=== PATIENT | male | born 1995 | race Hispanic/Latino ===

== ENCOUNTER 2019-09-13 17:25 | Observation (INO) | payer OTHER ==
[~2019-09-13] VITALS: Ht 172.7 cm; Wt 129.9 kg
--- NOTE | 2019-09-13 23:08 | NUR ---
09/13/19 2247 Lisseth Lester PT ARRIVES TO PACU WITH ORAL AIRWAY IN PLACE.
--- NOTE | 2019-09-13 23:21 | HP ---
[facility] [address], [place] [address] Signed ADMISSION DATE: 09/13/2019 REASON FOR ADMISSION: Clinical appendicitis. 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 He presented to the emergency room where he was evaluated by Dr. Carl. Yesterday, he had vague upper abdominal pain and central pain, pain in the region of the umbilicus which has migrated to the right lower quadrant today. The patient ate this morning but only had some water on the way over from [place] late this afternoon. His evaluation was notable for a positive Rovsing sign and marked tenderness at McBurney point. His white count was noted to be normal at 10.4 with a normal hematocrit of 40.8, platelets of 252,000, and Chem profile also normal including liver enzymes normal. His urinalysis was also normal except for a specific gravity elevated at 1.044. The patient has had nausea associated with this and some diarrhea, but no blood per rectum and no profound diarrhea. He also notes that he has pain upon urination. His pain is most dominantly at McBurney point. A CT scan was performed at approximately 6:15 p.m., which confirmed a fecalith within the appendix, but no sign of particular dilation of the appendix or marleen-appendiceal stranding. PAST MEDICAL HISTORY: Rather unremarkable. PAST SURGICAL HISTORY: He has never had surgery. MEDICATIONS: Takes no medications chronically. SOCIAL HISTORY: He is unmarried, though does have a live-in girlfriend. They live in [place]. He works for [employer]. REVIEW OF SYSTEMS: He denies any shortness of breath or chest pain. Denies any trauma to the abdomen or recent lifting pain or symptoms in that regard. He has no blood per rectum or Electronically Signed By: TYRONE MARIEE MD 09/13/19 2321 PATIENT NAME: LIOR JOHNSON HISTORY AND PHYSICAL DATE OF : [birth year] REPORT #: [id number] PHYSICIAN: TYRONE MARIEE MD PCP: NO PRIMARY CARE PHYSICIAN REPORT IS CONFIDENTIAL AND NOT TO BE RELEASED WITHOUT AUTHORIZATION [facility] [address], [place] [address] Signed hematemesis. He denies dysuria, though when he does urinate, he has pain developed in the right lower quadrant. PHYSICAL EXAMINATION: GENERAL: This is an obese man, who does not look systemically toxic. HEENT: Mucous membranes are slightly dry. Trachea is midline. CHEST: Shows normal respiratory excursion. HEART: Regular. ABDOMEN: Obese, but generally soft. Rovsing sign is positive and he has marked tenderness in McBurney point. EXTREMITIES: Show no clubbing, cyanosis, or edema. CT scan was reviewed. My review of the images confirms fecalith at the base of the appendix, particularly demonstrated in coronal view. The appendix appears to be obscured somewhat by ilium in the region. Admittedly, there is no fat stranding or periappendiceal fluid. ASSESSMENT: This clinical diagnosis is that of appendicitis. It is acknowledged he is not febrile nor he does have an elevated white count. CT scan does not show fat stranding. However, his clinical history and his exam are highly consistent with appendicitis. His urinalysis is normal and there is less likely a finding of pyelonephritis or nephrolithiasis. His gallbladder appears to be small and contracted. His liver appears to be reasonably normal. I recommended he be given cefoxitin antibiotic and Pepcid intravenously and taken to surgery this evening for laparoscopic appendectomy, possible open procedure. The risks of bleeding, infection, failure of diagnosis, misdiagnosis, and need for other indicated procedures were reviewed with him in detail. The patient has been having pain for over 24 hours and I think it unlikely for it to resolve with additional observation in the hospital with IV fluids. He understands the ambiguity of his diagnosis to some degree, but his clinical diagnosis is quite consistent with appendicitis and expedient appendectomy is reasonable. MD ANNETTE Cast/ALBA /[id number] Electronically Signed By: TYRONE MARIEE MD 09/13/19 232 PATIENT NAME: LIOR JOHNSON HISTORY AND PHYSICAL DATE OF : [birth year] REPORT #: [id number] PHYSICIAN: TYRONE MARIEE MD PCP: NO PRIMARY CARE PHYSICIAN REPORT IS CONFIDENTIAL AND NOT TO BE RELEASED WITHOUT AUTHORIZATION [facility] [address] [facility] [place] [address] Signed cc: Lawrence Carl MD Copies: LAWRENCE CARL MD ~ Electronically Signed By: TYRONE MARIEE MD 09/13/19 2321 PATIENT NAME: LIOR JOHNSON HISTORY AND PHYSICAL DATE OF : [birth year] REPORT #: [id number] PHYSICIAN: TYRONE MARIEE MD PCP: NO PRIMARY CARE PHYSICIAN REPORT IS CONFIDENTIAL AND NOT TO BE RELEASED WITHOUT AUTHORIZATION
--- NOTE | 2019-09-13 23:50 | NUR ---
PT TO FLOOR VIA STRETCHER FROM PACU. PT ALERT AND ORIENTED. ABLE TO TRANSFER SELF FROM [place] TO BED. REPORT RECEIVED FROM PACU NURSE. SCD'S IN PLACE. IVF INFUSING. LAP SITES X 3 WITH SMALL AMOUNT SANGUINOUS DRAINAGE. STERI STRIPS INTACT, REINFORCED WITH GAUZE AND TAPE. FRESH GOWN AND WARM BLANKETS GIVEN. PRN GIVEN FOR 8/10 ABD PAIN. VSS. 1L/NC IN PLACE. PT ORIENTED TO ROOM AND NURSE CALL LIGHT. NO QUESTIONS OR CONCERNS AT THIS TIME. CALL LIGHT IN REACH.
--- NOTE | 2019-09-14 00:49 | NUR ---
POST OP VITALS COMPLETE. PT ABLE TO VOID 325 ML YELLOW URINE. NO NEEDS AT THIS TIME. CALL LIGHT IN REACH.
--- NOTE | 2019-09-14 03:04 | NUR ---
PT UP TO BR WITH SBA TO VOID 600 ML YELLOW URINE. SRINIVAS WELL. BACK TO BED, SCD'S IN PLACE. PRN GIVEN FOR 8/10 ABD PAIN. ICE PACK TO ABDOMEN. CHICKEN BROTH AND SODA GIVEN, NO C/O NAUSEA. PT WEANED OFF OXYGEN, SPO2 95% ON RA. POST-OP VITAL SIGNS COMPLETE. CALL LIGHT IN REACH.
--- NOTE | 2019-09-14 04:45 | NUR ---
PT RESTING IN BED WITH EYES CLOSED, NAD. RR EVEN AND UNLABORED. SCD'S IN PLACE. IVF INFUSING. CALL LIGHT IN REACH.
--- NOTE | 2019-09-14 05:40 | NUR ---
PATIENT USED THE CALL LIGHT. SBA TO THE BATHROOM. PATIENT IS BACK IN BED. SCD ON. SPRITE PROVIDED. ICE WATER REFILLED. MADE NEW ICE PACK.
--- NOTE | 2019-09-14 06:02 | NUR ---
PT SLEPT WELL. ALERT AND ORIENTED, USES CALL LIGHT APPROPRIATELY. RA. SRINIVAS CL LIQ AT THIS TIME. LAP SITES X 3 WITH STERI STRIPS COVERED WITH GAUZE. SCHEDULED MEDS AND PRN DILAUDID X 2 FOR PAIN. DENIES NAUSEA. SCD'S. SBA TO
--- NOTE | 2019-09-14 07:52 | NUR ---
BEDSIDE REPORT RECEIVED FROM VIRGINIA ARGUELLO. WHITE BOARD UPDATED. PATIENT AWAKE SITTING UP IN BED. PAIN WELL CONTROLLED. ASSISTED UP TO BATHROOM. STANDBY ASSIST. IVF INFUSING. INDEPENDENTLY ORDERED BREAKFAST. STERI STRIPS COVERED WITH GAUZE AND TAPE FOR BLEEDING THROUGH STERI STRIPS.
--- NOTE | 2019-09-14 08:30 | NUR ---
AMBULATED 2 LAPS IN HALLWAY INDEPENDENTLY. TOLERATED WELL. REPORTED PAIN IN RUQ AND SHOULDERS. EDUCATED PATIENT ON IMPORTANCE OF WALKING TO RELIEVE GAS PAIN. TORADOL GIVEN PRN AFTER WALK.
--- NOTE | 2019-09-14 09:01 | NUR ---
MED REC COMPLETE
--- NOTE | 2019-09-14 12:30 | NUR ---
SPOKE WITH PATIENT IN ROOM. PATIENT LIVES WITH GIRLFRIEND, SHE WILL PROVIDE RIDE HOME AT DISCHARGE. 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 PATIENT HAS NO PCP, USES WALK-IN CLINIC WHEN NEEDED. DISCUSSED IMPORTANCE OF ESTABLISHING AND USING ONE. PATIENT FEELS SAFE TO RETURN HOME AT DISCHARGE AND HAS NO KNOWN BARRIERS. DISCUSSED TO UNDERSTAND DISCHARGE INSTRUCTIONS, ESPECIALLY MEDS AND SIDE EFFECTS, WHAT S/S TO WATCH FOR AND WHO TO CALL. PATIENT STATES UNDERSTANDING.
--- NOTE | 2019-09-14 12:38 | NUR ---
SALINE LOCKED PATIENT. HE IS EATING AND DRINKING WELL AND URINATING QUANTITY SUFFICIENT.
[2019-09-14] MEDS ORDERED: TYLENOL EXTRA500 MG PO (17:42)
[2019-09-14] MEDS ORDERED: OXYCODON-ACETA1 EAC2 PO (17:42)
[2019-09-14] MEDS ORDERED: IBUPROFEN600 MG PO (17:42)
--- NOTE | 2019-09-14 17:46 | NUR ---
pt ambulating in hallway now.
--- NOTE | 2019-09-14 19:06 | OR ---
[facility] [address], [place] [address] Signed DATE OF OPERATION: 09/13/2019 SURGEON: Tyrone Mariee MD PREOPERATIVE DIAGNOSES: 1. Acute appendicitis (clinical diagnosis). 2. Morbid obesity. POSTOPERATIVE DIAGNOSES: 1. Acute appendicitis with regional serositis. 2. Morbid obesity. PROCEDURE: Laparoscopy with laparoscopic appendectomy. ANESTHESIA: General endotracheal; Tyrone Montaño CRNA and local 10 mL of 0.25% Marcaine with epinephrine. INDICATION: This 24-year-old man began having midabdominal pain yesterday, associated diarrhea and some nausea today. His pain migrated to the right lower abdomen. He presented to the emergency room where he was evaluated by Dr. Sparks confirming marked tenderness in McBurney point, a positive Rovsing sign as well as heel tap. His white count was normal at 10.4. The urinalysis normal and Chem profile normal. A CT scan was performed, which showed a fecalith within the appendix, but no sign of dilation or periappendiceal stranding of fat. Despite these confounding findings on the CT scan, he was considered by me and Dr. Carl to have appendicitis based on his clinical history and exam. He has been fluid resuscitated, given intravenous antibiotic cefoxitin, and now to undergo appendectomy preferred by laparoscopic approach. The risks of bleeding, infection, failure of diagnosis, misdiagnosis, and need for other indicated procedures was reviewed. He understands and wished to proceed. FINDINGS: Regional serositis of small bowel loops in the right lower quadrant was noted. The appendix was ultimately noted to be inflamed, although not gangrenous, certainly edematous and injected. There is no evidence of perforated ulcer. The gallbladder was normal. Liver was normal despite his obesity. Appendectomy was performed without problem. The small bowel was run from the terminal ileum proximally showing no sign of regional enteritis (creeping fat, etc.) and no Meckel diverticulum was identified. Electronically Signed By: TYRONE MARIEE MD 09/14/19 1906 PATIENT NAME: LIOR JOHNSON OPERATIVE REPORT DATE OF : [birth year] REPORT #: [id number] PHYSICIAN: TYRONE MARIEE MD PCP: NO PRIMARY CARE PHYSICIAN REPORT IS CONFIDENTIAL AND NOT TO BE RELEASED WITHOUT AUTHORIZATION [facility] [address] [place], [place] [address] Signed A effect with cautery on the cecum was secured with a V-Loc stitch for added security. DESCRIPTION OF PROCEDURE: The patient was brought to the operating room, given a general endotracheal anesthetic. Preoperative antibiotic cefoxitin had been given. Sequential compression device stockings were used. After satisfactory anesthesia, the abdomen was clipped and prepared with a chlorhexidine solution and draped sterilely. He has a very large abdominal pannus. An infraumbilical incision was made and using an open Emerson cannula technique, pneumoperitoneum was achieved to a level of 14 mmHg of carbon dioxide gas. Intraabdominal inspection showed no sign of ascites or carcinomatosis. It did show inflammatory fluid in the right pericolic gutter. The small bowel loops were injected and considered inflamed. An epigastric port was placed and a camera placed to that site. Manipulation of the bowel with single hand technique showed no evidence of abscess. The appendix was identified and found to be moderately inflamed and injected and edematous. There was no sign of gangrenous change. The right lower quadrant 5 mm trocar was placed and two-hand manipulation undertaken. The terminal ileum was identified by the antimesenteric fat pad of Carmen and found to have no evidence of Crohn disease, specifically no creeping fat stenosis or inflammation specifically. The bowel loops in the region of the cecum did have acute serositis. It is noted. The appendix was elevated and a window created between the appendix and mesoappendix. Using an Endo-FRANCOIS stapling device, the base of the appendix was transected, flushed with the cecum without problem. This allowed for a straightforward insinuation of the Endo-FRANCOIS to the mesoappendix. This was transected without problem as well. The appendix was placed in an endobag and extracted through the infraumbilical port site, opened and found to clearly have inflammation. Photographs were taken. Irrigation was undertaken in the right lower abdomen. Excess irrigation fluid was suctioned free. The staple line on the vascular side did not have vigorous bleeding, but minimal oozing and therefore electrocautery was used to secure it. There was noted to be a effect, having used the cautery in a focal area of the cecum. This was oversewn with an Endo Stitch device using a V-Loc barbed suture. This covered the site in question quite nicely. Photographs were taken. Irrigation fluid was suctioned free. Examination of the upper abdomen showed no sign of evidence to suggest perforated ulcer, the gallbladder was normal in appearance overall. Excess irrigation fluid was suctioned free and the trocars were removed under direct visualization showing no sign of bleeding. The infraumbilical fascial incision was reapproximated with interrupted 0 Vicryl suture as well as a running 0 PDS suture for added security given his morbid obesity. Irrigation was undertaken and the skin was then closed with interrupted 3-0 Vicryl. Steri-Strips were applied. The patient was ultimately extubated and transferred to the recovery room in good Electronically Signed By: TYRONE MARIEE MD 09/14/19 1906 PATIENT NAME: LIOR JOHNSON OPERATIVE REPORT DATE OF : [birth year] REPORT #: [id number] PHYSICIAN: TYRONE MARIEE MD PCP: NO PRIMARY CARE PHYSICIAN REPORT IS CONFIDENTIAL AND NOT TO BE RELEASED WITHOUT AUTHORIZATION [facility] [address] [place] [address] [place], [place] [address] Signed condition and suffered no complications. Sponge, needle, and instrument counts reported as correct x3. MD ANNETTE Cast/MODL /[id number] cc: Lawrence Carl MD Copies: LAWRENCE CARL MD ~ Electronically Signed By: TYRONE MARIEE MD 09/14/19 1906 PATIENT NAME: LIOR JOHNSON OPERATIVE REPORT DATE OF : [birth year] REPORT #: [id number] PHYSICIAN: TYRONE MARIEE MD PCP: NO PRIMARY CARE PHYSICIAN REPORT IS CONFIDENTIAL AND NOT TO BE RELEASED WITHOUT AUTHORIZATION
--- NOTE | 2019-09-16 15:01 | PATH ---
[facility] [address] [place], [place] [address] Signed SPECIMEN(S): A APPENDIX SPECIMEN SOURCE: A. APPENDIX CLINICAL HISTORY: Acute appendicitis. FINAL PATHOLOGIC DIAGNOSIS: Appendix, appendectomy: - Appendix with focal minimal active inflammation and acute serositis. COMMENT: The entire appendix was submitted for histologic examination. A focal area of active inflammation was identified in the appendiceal mucosa. No transmural acute inflammation is seen, but mild acute serositis is present. Correlation with clinical and imaging findings is recommended. NAL:cml:C2NR MICROSCOPIC EXAMINATION: Histologic sections of all submitted blocks are examined by light microscopy. These findings, together with the gross examination, support the pathologic diagnosis. GROSS DESCRIPTION: The specimen, labeled "IV, A," and designated on the requisition "appendix," is received in formalin and consists of Specimen: Appendix with mesoappendix. Dimensions: 7.2 x 2.5 x 3.2 cm. Serosa: Normal. Perforation: Not grossly identified. Inking: Staple line is inked black. Mucosa: Amaro and thickened towards distal tip with dilated lumen. Fecalith: Present. Additional: None. Survey Project Manager sections are submitted in cassette (A1). AT (under the direct supervision of a pathologist) *Remaining specimen entirely submitted in cassettes A2-A4 per Dr. Jacinto's request. The Gross Description was prepared using a voice recognition system. The PATIENT NAME: LIOR JOHNSON PATHOLOGY DATE OF : [birth year] REPORT #: [id number] PHYSICIAN: ELIF PATHOLOGY PCP: NO PRIMARY CARE PHYSICIAN REPORT IS CONFIDENTIAL AND NOT TO BE RELEASED WITHOUT AUTHORIZATION [facility] [address] [place], [place] [address] Signed report was reviewed for accuracy; however, sound-alike word errors, addition and/or deletions may occur. If there is any question about this report, please contact Client Services. PERFORMING LABORATORY: The technical component was performed by [address] [address] (Draw String Knotter: Marybeth Munoz MD; CLIA# [id number]). Professional interpretation was performed by [facility] [place], [address] [address] (CLIA# [id number]). Diagnostician: Justina Jacinto MD Pathologist Electronically Signed 09/16/2019 Copies: ~ PATIENT NAME: LIOR JOHNSON PATHOLOGY DATE OF : [birth year] REPORT #: [id number] PHYSICIAN: ELIF LYNNE PCP: NO PRIMARY CARE PHYSICIAN REPORT IS CONFIDENTIAL AND NOT TO BE RELEASED WITHOUT AUTHORIZATION
== END 2019-09-14 18:25 | disposition home or self-care (01) ==
LOC: ED 17:25 → MS 17:27
PROVIDERS: ADMIT Surgery
PROC: 0DTJ4ZZ Resection of Appendix, Percutaneous Endoscopic Approach (ICD-10-PCS; principal; 2019-09-13 21:03)
DX: K35.33 Acute appendicitis with perforation, localized peritonitis, and gangrene, with abscess (principal); E66.01 Morbid (severe) obesity due to excess calories; F12.90 Cannabis use, unspecified, uncomplicated
CPT/HCPCS: 00840; 36415; 74177; 80053; 81001; 85025; 96372; 96376; 99285-25; G0378; J0330; J0694; J1100; J1170; J1644; J1885; J2250; J2405; J2704; J2765; J3010; J7030; J7121; Q9967

== ENCOUNTER 2020-06-19 23:11 | Inpatient (IN) | payer BC ==
[~2020-06-19] VITALS: Ht 172.7 cm; Wt 127.5 kg
[~2020-06-19 23:11] MED LIST: IBUPROFEN600 MG PO; OXYCODON-ACETA1 EAC2 PO; TYLENOL EXTRA500 MG PO
--- OUTSIDE RECORDS SUMMARY | 2020-06-19 23:16 | XMS ---
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 Natalia has no Care Guidelines for this patient. Sandy VISIT COUNT (12 MO.) [address] TOTAL 3 NOTE: Visits indicate total known visits. ED/UCC VISIT TRACKING (12 MO.) 06/19/2020 23:14 [facility] [place] TYPE: Emergency COMPLAINT: - RIGHT FLANK C+ 06/19/2020 13:11 [facility] [place] TYPE: Emergency DIAGNOSES: - R AIDE PAIN DIARRHEA - Diverticulitis of intestine, part unspecified, without perforation or abscess without bleeding - R SIDE PAIN DIARRHEA 09/13/2019 17:26 [facility] [place] TYPE: Emergency COMPLAINT: - RIGHT SIDE ABD PAIN INPATIENT VISIT TRACKING (12 MO.) 09/13/2019 17:27 [facility] [place] TYPE: Observation COMPLAINT: - ACUTE APPENDICITIS DIAGNOSES: - Acute appendicitis with perforation and localized peritonitis, with abscess - Cannabis use, unspecified, uncomplicated - Unspecified acute appendicitis - Morbid (severe) obesity due to excess calories [email or web address]
[2020-06-19] MEDS ORDERED: METRONIDAZOLE500 MG PO (23:44)
[2020-06-19] MEDS ORDERED: CIPROFLOXACIN500 MG PO (23:44)
--- NOTE | 2020-06-20 02:45 | NUR ---
PATIENT ARRIVES TO [place] VIA STRETCHER FROM ED. ADMISSION AND ASSESSMENT COMPETE. PT AMBULATES TO BR INDEPENDENTLY. IVF INFUSING WNL, PRN ZOFRAN ADMINISTERED, PT REPORTS 7/10 SHARP ABD PAIN, MADE PLAN WITH PT FOR NEXT PRN PAIN MEDICATION. VSS, A+O, ON ROOM AIR. WATER PROVIDED, ORIENTED TO ROOM, CALL LIGHT IN REACH, EMESIS BAG IN HAND. NO FURTHER REQUESTS AT THIS TIME.
--- NOTE | 2020-06-20 06:38 | NUR ---
MEDICATIONS ADMINISTERED, VITALS AND I/O'S COMPLETE, PT AMBULATED TO BR, IVF INFUSING WNL. PRN PAIN MEDICATION ADMINISTERED FOR 8/10 PAIN. NO OTHER NEEDS AT THIS TIME.
--- NOTE | 2020-06-20 07:52 | NUR ---
REPROT RECEIVED. PT IN BED WITH TELE #[address] HR 75 AND SPO2 AT 100% ON RA. LR AT 125 INFSUING. CALL LIGHT IN REACH.
--- NOTE | 2020-06-20 10:21 | NUR ---
ASSESSMENT COMPLETED. PT REPORTING ABD PAIN BUT WISHES TO HOLD OFF ON PAIN MEDS FOR NOW. PT WITH SOME NAUSEA AND EMESIS AFTER DRINKING BROTH, EDUARDO ADMISNTERED. NO PROBLEMS BREATHING. PT IS DIAPHORETIC BUT AFEBRILE. NO COUGH. CALL LIGHT IN REACH.
[2020-06-20] MEDS ORDERED: OXYCODONE-ACET1 EAC1 PO (10:57)
--- NOTE | 2020-06-20 11:33 | NUR ---
MED REC COMPLETE
--- NOTE | 2020-06-20 11:58 | NUR ---
ROUNDED ON PT. ASSISTED UP TO CHAIR. PT REPORTING RLQ PAIN 8/10 WITH AMBULATION BUT MINIMAL PAIN WHILE SITTING.
--- NOTE | 2020-06-20 14:30 | NUR ---
DR MARIEE IN TO ROUND. PLAN OF CARE DISCUSSED. IV FLUIDS TITRATED TO 85ML/HR PER DR CANDELARIA.
--- NOTE | 2020-06-20 14:40 | NUR ---
DUE TO RESTRICTIONS I AM UNABLE TO VISIT PT. WILL FOLLOW NEEDED
--- NOTE | 2020-06-20 15:30 | NUR ---
PT REPORTING 7/10 RLQ PAIN. TORIDOL ADMISNTERED. PT IN BED. CALL LIGHT IN REACH
--- NOTE | 2020-06-20 16:22 | NUR ---
NO ANSWER IN ROOM PHONE. CM WILL CONTINUE TO FOLLOW.
--- NOTE | 2020-06-20 18:39 | NUR ---
PT ATTEMPTED TO DRINK CLEAR LIQUID DINNER. DRANK 200 ML THEN QUICKLY VOMITED IT UP. ZOFRAN ANDMINSTERED. ENCOURAGED TO STICK TO WATER FOR THE NIGHT. PT INSISTED ON SHOWERING, SO SHOWER SET UP. PT SALINE LOCKED. REPORTS PAIN IS IMPROVED SINCE TORIDOL. CALL LIGHT IN REACH DENIES FURTHER NEEDS.
--- NOTE | 2020-06-20 19:20 | NUR ---
SHIFT REPORT RECEIVED FROM DAYSHIFT SAUNDRA POWER. pt AWAKE AND RESTING IN BED, INDEPENDENT IN THE ROOM. REPORTS NAUSEA FROM EARLIER IS IMPROVED, DENIES NEED FOR NAUSEA MEDICATION AT THIS TIME, CALL LIGHT IN REACH.
--- NOTE | 2020-06-20 19:35 | NUR ---
PT STILL WITH NAUSEA AFTER ZOFRAN. DR MARIEE CALLED. NEW ORDER FOR PHENERGAN 12.5MG Q6P RECIEVED. READ BACK FOR VERIFICATION.
--- NOTE | 2020-06-20 21:30 | NUR ---
ASSESSMENT COMPLETE, SCHEDULED MEDS GIVEN (SEE EMAR). pt AWAKE AND RESTING IN BED. VSS, TELE10 IN PLACE, SINUS RHYTHM. pt ON RA, DENIES SOB AND CHEST PAIN. IV FLUIDS AND ABX INFUSING. PRN NAUSEA MEDICATION ALSO GIVEN. pt INDEPENDENT IN ROOM, COMPLIANT WITH CARE. CALL LI IN REACH.
--- NOTE | 2020-06-21 00:20 | NUR ---
pt's GIRLFRIEND NUHA CALLED AND ASKED FOR UPDATE, QUESTIONS ANSWERED.
--- NOTE | 2020-06-21 00:39 | NUR ---
ROUNDED ON pt, pt AWAKE AND RESTING IN BED. IV FLUIDS CONTINUE TO INFUSE PER MD ORDERS. NO NEEDS OR CONCERNS AT THIS TIME. CALL LIGHT IN REACH.
--- NOTE | 2020-06-21 02:30 | NUR ---
ASSESSMENT COMPLETE, NO NEW CHANGES OR CONCERNS. pt AWAKE AND RESTING IN BED, REPORTS TOLERABLE 4/10 ABD PAIN. DENIES NEED FOR PAIN MEDICATION. pt ALSO DENIES NAUSEA. IV FLUIDS AND ABX INFUSING, SITE WNL. URINAL EMPTIED, BOARD UPDATED. NO ADDITIONAL NEEDS, CALL LIGHT IN REACH.
--- NOTE | 2020-06-21 03:47 | NUR ---
pt RESTING QUIETLY IN BED WITH EYES CLOSED. RR REMAINS WNL, REGULAR AND UNLABORED. O2 SATS UPPER 90'S ON RA. NO DISTRESS NOTED, CALL LIGHT IN REACH.
--- NOTE | 2020-06-21 06:17 | NUR ---
vs and i&o's complete. scheduled tylenol and prn toradol given for pain (see emar). prn zofran also given (see emar). blood draw also complete and sent to lab, tourniquet removed. iv fluids resumed, site wnl. no additional needs, call light in reach.
--- NOTE | 2020-06-21 07:23 | NUR ---
REPORT RECEIVED. PT IN BED WITH TELE [address] SPO2 AT 99% ON RA. HR 70. LR AT 85ML/HR INFUSING. PT IN BED WITH EYES CLSOED. AIRBORN PRECAUTIONS IN PLACE. PT INDEPENDENT IN ROOM. CALL LIGHT IN REACH
--- NOTE | 2020-06-21 08:09 | NUR ---
IN TO ADMISNTER MEDICATIONS. PT REQUESTING SHOWER AFTER ABX INFUSES. SHOWER SET UP. PT REPORTS 6/10 RLQ PAIN. PT WITH HEAT PACK. DENIES NEED FOR PHARMALOGICAL INTERVENTIONS. REPORTS SOME NAUSEA. WATER AT BEDSIDE. BOWEL TONES HYPOACTIVE IN LOWER ABD. LUNGS CLEAR. NO BM, NO EMESIS.
--- NOTE | 2020-06-21 08:42 | NUR ---
saline locked for shower.
--- NOTE | 2020-06-21 09:43 | NUR ---
PT BACK TO BED AFTER SHOWER. FLUIDS CONINUED PER ORDER. PT DENIES PAIN OR NAUSEA. REQUESTING BROTH. ENCOURAGED TO TAKE IT SLOW.
--- NOTE | 2020-06-21 11:11 | NUR ---
PT ON CLEAR LIQUID DIET STICKING WITH MOSTLY WATER. REPORTING SOME SLIGHT NAUSEA REQUESTING MEDICATION. ZOFRAN ADMINSTERED. DENEIS PAIN. CALL LIGHT IN REACH.
--- NOTE | 2020-06-21 12:00 | NUR ---
PT REPORTS IMPROVMENT IN NAUSEA AND IS REQUESTING CHICKEN BROTH. ENCOURAGED TO DRINK SLOW AND MONITOR FOR INCREASE IN NAUSEA. PT AGREEABLE. ENCOURAGED TO AMBULATE IN ROOM PT IS NOT ALOUD TO WALK HALLS. CALL LIGHT IN REACH. DENEIS FURTHER NEEDS.
--- NOTE | 2020-06-21 12:37 | NUR ---
PT UNDER PRECAUTIONS, WILL FOLLOW ABLE
--- NOTE | 2020-06-21 14:25 | NUR ---
PT DENEIS PAIN. SCHEDULED TYLENOL ADMISNTERED. REPORTS SOME NSUEA, PHENERGAN GIVEN. NO EMESIS THIS SHIFT. LR INFUSING AT 85ML/HR. CALL LIGHT IN REACH.
--- NOTE | 2020-06-21 16:00 | NUR ---
PT REPORTING FEELING HUNGRY AND IS REQUESTING BROTH. DENIES PAIN. DENIES NAUSEA.
--- NOTE | 2020-06-21 17:00 | NUR ---
Pt lives in [place] and works for [employer]. Lives with his girlfriend in a house with 2 steps. He denies covid symptoms, states he has abd pain from diverticulitis. He denies needs at this point. Plans on dc to home when discharged and girl friend will assist him. He does not have a pcp and we discussed this. I will check tomorrow if Dr. Zapata is still taking pts.
--- NOTE | 2020-06-21 19:15 | NUR ---
SHIFT REPORT RECEIVED FROM DAYSHIFT SAUNDRA POWER. pt AWAKE AND RESTING IN BED, ON RA. NO DISTRESS NOTED. IV FLUIDS INFUSING. NO ADDITIONAL NEEDS AT THIS TIME, CALL LIGHT IN REACH.
--- NOTE | 2020-06-21 21:15 | NUR ---
ASSESSMENT COMPLETE, SCHEDULED MEDS GIVEN (SEE EMAR). PO ABX'S GIVEN WITH SMALL SNACK. PRN NAUSEA ALSO GIVEN PER pt REQUEST. IV FLUIDS INFUSING, SITE WNL. pt DENIES PAIN, DECLINED SCHEDULED TYLENOL. WRITTEN EDUCATION GIVEN ON LOW FIBER. VSS, pt ON RA. DENIES SOB AND CHEST PAIN. TELE#[address], SINUS RHYTHM. NO ADDITIONAL NEEDS VERBALIZED, CALL [facility] IN REACH.
--- NOTE | 2020-06-21 23:48 | NUR ---
pt AWAKE AND RESTING IN BED, DENIES NEEDS OR CONCERNS. TELE#[address], O2 SAT 98% ON RA, HR 55, SINUS DOT. IV FLUIDS INFUSING. CALL LIGHT REMAINS WITHIN REACH.
--- NOTE | 2020-06-22 01:52 | NUR ---
pt AWAKE AND RESTING IN BED, DENIES NEEDS OR CONCERNS. IV FLUIDS CONTINUE TO INFUSE AT 85MLS/HR AND CALL LIGHT IS WITHIN EASY REACH.
--- NOTE | 2020-06-22 02:59 | NUR ---
ASSESSMENT COMPLETE, NO NEW CHANGES OR CONCERNS. pt AWAKE AND RECENTLY VOIDED, INDEPENDENT IN THE ROOM. TELE#[address], HR 50, SINUS DOT. O2 SAT 98% ON RA. pt DENIES SOB OR CHEST PAIN. IV FLUIDS INFUSING, SITE WNL. PUMP CLEARED. pt DENIES PAIN, BUT REPORTS SOME DISCOMFORT WHEN AMBULATING. WARM PACK PROVIDED, DISCUSSED POC FOR NEXT SCHEDULED TYLENOL (SEE EMAR). pt VERBALIZES UNDERSTANDING AND WILL CALL IF PAIN DEVELOPS AND MEDICATION IS NEEDED. CALL LIGHT IN REACH.
--- NOTE | 2020-06-22 06:00 | NUR ---
LAB DRAW COMPLETE AND SENT TO LAB, pt TOLERATED WELL. TOURNIQUET REMOVED. VSS AND I&O'S COMPLETE AND ALSO STABLE. pt DENIES PAIN, SCHEDULED TYLENOL GIVEN (SEE EMAR) TO PREVENT WORSENING PAIN. IV FLUIDS INFUSING, SITE WNL. NO FURTHER NEEDS, CALL LIGHT IN REACH.
--- NOTE | 2020-06-22 07:20 | NUR ---
pt ASKED ABOUT ISOLATION REGARDING DISCHARGE AND IF IT WOULD BE OKAY TO RETURN HOME HIS BABY AND GIRLFRIEND ARE BOTH POSITIVE WITH COVID AND LIVE WITH HIM. pt INSTRUCTED TO DISCUSS QUESTIONS WITH DR MARIEE WHEN HE COMES AND ROUNDS. pt VERBALIZED UNDERSTANDING.
--- NOTE | 2020-06-22 10:00 | NUR ---
Patient is on room air, respirations even and non labored. Pt denies sob. No notable cough. Pt reports he has no pain. LR infusing at 85 ml/hr. Patient tolerating breakfast well. Pt denies needs and reports he is ready to go home today. Call light within reach of pt.
--- NOTE | 2020-06-22 14:23 | NUR ---
Patient sitting up in chair, a&ox4. Patient denies pain at this time. VS stable, afebrile. Patient has no needs. Personal supplies and call light within reach.
--- NOTE | 2020-06-22 14:25 | NUR ---
No change in plan for dc.
--- NOTE | 2020-06-22 14:25 | NUR ---
Noo change in plan for discharge.
[2020-06-22] MEDS ORDERED: ACETAMINOPHEN500 MG PO (14:45)
--- NOTE | 2020-06-22 15:14 | NUR ---
Called and spoke with Maribel from scheduling. She requests a face sheet and notes. She will schedule Servando and call with his appt time and date. Above faxed as requested.
--- NOTE | 2020-06-22 15:17 | NUR ---
Notified office, pt will discharge today and requested they call him with his appt date and time.
--- NOTE | 2020-06-22 15:19 | HP ---
[facility] [address], [place] [address] Signed ADMISSION DATE: 06/19/2020 REASON FOR ADMISSION: Acute sigmoid diverticulitis with right lower quadrant pain concurrent positive COVID testing 24 hours previously. HISTORY OF PRESENT ILLNESS: This 24-year-old obese man is from [place], [place], who works for [employer]. He is known to me from the past having undergone laparoscopic appendectomy by me on September 13, 2019, The patient presented to the emergency room in [place] yesterday with right lower abdominal pain and generalized lower abdominal pain. He underwent CT scan which showed findings suggestive of sigmoid diverticulitis, but noting the sigmoid colon angling toward the right lower abdomen thus giving the impression and symptoms of right lower quadrant pain. The patient was known to me for acute appendicitis in August of 2019., having undergone laparoscopic appendectomy without problem. It appears he was tested for COVID in the emergency room in [place], [place] and the test was positive. The disposition of the patient from [place] yesterday was not admission to the hospital for IV antibiotics or other interventions but rather oral antibiotic Levaquin and Flagyl as well as Percocet for pain. The patient was unrelenting in his pain and presented to the [facility] on that basis. His evaluation in the emergency room was by Dr. Rangel. I was advised in the installation specialist hours of his condition of acute diverticulitis apparently nonresponsive to outpatient therapy, though I do not recall the issue of his COVID status. He was admitted for further evaluation and care. PAST MEDICAL HISTORY: Significant primarily for obesity and prior appendectomy. The patient is uncertain how he may have contracted COVID-19; he works in a capacity of [employer] for [email or web address] and one other workforce member is known to have it recently. The patient denies any shortness of breath, though he did have diarrhea a few days ago, which has resolved. He is uncertain how long he may have been positive but he exhibits currently no evidence of hypoxemia or other systemic manifestations of COVID Electronically Signed By: TYRONE MARIEE MD 06/22/20 1519 PATIENT NAME: LIOR JOHNSON HISTORY AND PHYSICAL DATE OF : [birth year] REPORT #: [id number] PHYSICIAN: TYRONE MARIEE MD PCP: NO PRIMARY CARE PHYSICIAN REPORT IS CONFIDENTIAL AND NOT TO BE RELEASED WITHOUT AUTHORIZATION [facility] [address], [place] [address] Signed disease. REVIEW OF SYSTEMS: Denies any shortness of breath or chest pain. He is having no peripheral extremity pain. He denies shortness of breath. PHYSICAL EXAMINATION: GENERAL: Large man who appears nontoxic currently. VITAL SIGNS: Temperature is 97.8, pulse 65, blood pressure 140/82, O2 saturation 100% on room air. NECK: Shows no thyromegaly or cervical adenopathy. He has a full young. HEENT: Mucous membranes are dry. CHEST: Shows normal respiratory excursion. Pulses regular. ABDOMEN: Obese, but soft. Well-healed incisions are noted of the abdominal wall from laparoscopic appendectomy. He has marked tenderness in the left lower quadrant, less so in the right lower abdomen. EXTREMITIES: Show no clubbing, cyanosis, or edema. There is no sign of erythematous change at the base of his toes (a finding of COVID on occasion). LABORATORY DATA: At admission show white count of 9.3, a hematocrit of 43.1. His Chem profile is normal. Lactic acid is 0.6. Liver enzymes are normal. Lipase normal at 13. Urinalysis normal. CT scan interpretation as per describing "stable" moderate active acute diverticulitis in the mid sigmoid with no extraluminal gas or drainable fluid collection. My own review of the films shows thick abdominal wall pannus. There is no sign of fascial defect at the umbilicus to suggest hernia. There are inflammatory changes to the right of the midline in the mesentery. There are inflammatory changes lateral to displaced sigmoid colon. There are a few scattered diverticuli in the region as well. There was no sign of free air abscess. ASSESSMENT: The patient has clinical and radiographic evidence of acute diverticulitis, however, this is an uncommon diagnosis in someone 24 years of age. I will review the CT scan findings more thoroughly with Dr. Vega, radiologist on staff. He is appropriately treated currently with cefoxitin, intravenous antibiotic and avoidance of oral intake other than some liquids. He was incidentally noted to have positive COVID test which may or may not contribute to his current symptoms. I see no evidence of peripheral thrombosis. No evidence of hypoxemia or other systemic manifestations of COVID-19. There are notably diverticuli of the sigmoid that has been identified, although his primary complaint was right lower abdominal pain. His dominant tenderness is on the left lower quadrant concordant to Electronically Signed By: TYRONE MARIEE MD 06/22/20 1519 PATIENT NAME: LIOR JOHNSON HISTORY AND PHYSICAL DATE OF : [birth year] REPORT #: [id number] PHYSICIAN: TYRONE MARIEE MD PCP: NO PRIMARY CARE PHYSICIAN REPORT IS CONFIDENTIAL AND NOT TO BE RELEASED WITHOUT AUTHORIZATION [facility] [address] [place] [address] Signed acute sigmoid diverticulitis. At this point, treatment will entail IV antibiotic administration, clear liquid diet as tolerated, monitoring of his O2 saturation to assess there is no progression of his COVID disease concurrently identified to require additional interventions. At minimum, anticoagulation with subcutaneous heparin will be initiated. There is no current indication for steroid administration in his situation. We will review current guidelines for treatment of asymptomatic or minimally symptomatic COVID-19 patients in addition to our plan for treatment of incidentally noted sigmoid diverticulitis. MD ANNETTE Cast/MODL /[id number] cc: Jason Casillas Dr. Rangel Copies: ~ Electronically Signed By: TYRONE MARIEE MD 06/22/20 1519 PATIENT NAME: LIOR JOHNSON HISTORY AND PHYSICAL DATE OF : [birth year] REPORT #: [id number] PHYSICIAN: TYRONE MARIEE MD PCP: NO PRIMARY CARE PHYSICIAN REPORT IS CONFIDENTIAL AND NOT TO BE RELEASED WITHOUT AUTHORIZATION
--- NOTE | 2020-06-22 16:47 | NUR ---
REceived fax from [facility] pt has been scheduled with Dr. Zapata 07/06/20 and they have notified the pt. They are requesting chart faxed to their office. I called and left a message for Rosa from Medical Records.
--- NOTE | 2020-06-23 09:33 | DS ---
[facility] [address], [place] [address] Signed ADMISSION DATE: 06/20/2020 DISCHARGE DATE: 06/22/2020 REASON FOR ADMISSION: This 24-year-old obese man is from [place], [place] and works for [employer]. He is known to me from the past having undergone laparoscopic appendectomy on September 13, 2019 for acute appendicitis. The patient presented to the emergency room in [place] the day prior to current admission with right lower abdominal pain and generalized lower abdominal pain. He underwent a CT scan which showed findings suggestive of sigmoid diverticulitis with a displaced sigmoid to the right lower abdomen. Additionally, he was noted to have positive COVID on emergency room testing at [place], [place]. Subsequently he has learned that his girlfriend, his baby, his girlfriend's mother, and brother all had development of COVID as well. The patient was discharged from the emergency room in [place], [place] with oral antibiotics Cipro and Flagyl and Percocet, but he presented instead to [facility] as he was markedly bothered by his abdominal pain related to the diverticulitis. His evaluation was repeated with a CT scan confirming the aforementioned findings and some fluid in the pelvis. He was admitted by me for further evaluation and care. PHYSICAL EXAMINATION: Pertinent physical exam: GENERAL: Showed a relatively tall man who is very fluent in Greek. NECK: Trachea is midline. CHEST: Clear. HEART: Regular. ABDOMEN: Obese, but soft. There is market tenderness in the right lower abdomen, but even more so in the left lower quadrant. Incisions from prior laparoscopic appendectomy well healed. A CT scan was reviewed confirming the findings as noted of sigmoid diverticulitis. There was some question of some pelvic fluid noted, though no well-formed abscess. HOSPITAL COURSE: He was admitted given intravenous fluids and IV antibiotic of cefoxitin. He was maintained in isolation as regards to his COVID-19 positive test. The patient was maintained with IV fluids, parenteral pain medication and avoidance of oral intake other than liquids. He had marked improvement by the following day. His Electronically Signed By: TYRONE MARIEE MD 06/23/20 0933 PATIENT NAME: LIOR JOHNSON DISCHARGE SUMMARY DATE OF : [birth year] REPORT #: [id number] PHYSICIAN: TYRONE MARIEE MD PCP: NO PRIMARY CARE PHYSICIAN REPORT IS CONFIDENTIAL AND NOT TO BE RELEASED WITHOUT AUTHORIZATION [facility] [address], [place] [address] Signed white count at admission had been 9.3, hematocrit 43.1, and lactic acid 0.6. His followup CBC was also normal, indeed improved. The following day he had very minimal if any tenderness in the left lower or right lower quadrant and was advanced from liquids to a rather low fiber diet, which he tolerated well. Additionally, he was transitioned to oral antibiotic, Cipro 500 mg p.o. b.i.d. and Flagyl 250 p.o. t.i.d. By the day of discharge, he is having no tenderness or abdominal pain complaints. He has had no progression of his COVID disease, specifically no fever, hypoxemia, or other manifestations of the ailment. He was discharged to home with instructions to maintain a low-fiber diet until I see him back in the office in 4-6 weeks. He will have a seven day course of Cipro and Flagyl as had been already outlined in [place]. As regards his COVID-19, he is recommended to isolate in place for an additional 12 days. He will likely return home to his girlfriend and their baby who are already afflicted with COVID-19 themselves. Long-term, we will anticipate colonoscopy to assure that there was no neoplastic change causing the diverticulitis. He is at a very young age for diverticulitis or colonic neoplasm and on that basis even more should this examination be undertaken. He understands this. DISCHARGE MEDICATIONS: Therefore include: 1. Tylenol 1000 mg p.o. every six hours as needed for pain #60. 2. Cipro 500 mg p.o. b.i.d. for seven days. 3. Flagyl 500 mg p.o. q.12 x7 days (previous prescription). 4. Oxycodone with Tylenol 5/325 one p.o. every six hours as needed for pain, patient already has. DISCHARGE DIAGNOSES: 1. Acute diverticulitis with left lower quadrant and some right lower quadrant tenderness. 2. History of laparoscopic appendectomy in August 2019. 3. Obesity. 4. Recent COVID infection. Tyrone Mariee MD Electronically Signed By: TYRONE MARIEE MD 06/23/20 0933 PATIENT NAME: LIOR JOHNSON DISCHARGE SUMMARY DATE OF : [birth year] REPORT #: [id number] PHYSICIAN: TYRONE MARIEE MD PCP: NO PRIMARY CARE PHYSICIAN REPORT IS CONFIDENTIAL AND NOT TO BE RELEASED WITHOUT AUTHORIZATION [address] [address] Signed /[facility] /[id number] Copies: ~ Electronically Signed By: TYRONE MARIEE MD 06/23/20932 PATIENT NAME: LIOR JOHNSON DISCHARGE SUMMARY DATE OF : [birth year] REPORT #: [id number] PHYSICIAN: TYRONE MARIEE MD PCP: NO PRIMARY CARE PHYSICIAN REPORT IS CONFIDENTIAL AND NOT TO BE RELEASED WITHOUT AUTHORIZATION
== END 2020-06-22 16:00 | disposition home or self-care (01) | DRG 391 ==
LOC: ED 23:11 → MS 23:15
PROVIDERS: ADMIT Surgery; ATTEND Surgery
DX: K57.32 Diverticulitis of large intestine without perforation or abscess without bleeding (principal); U07.1 COVID-19; Z68.41 Body mass index [BMI] 40.0-44.9, adult; F17.200 Nicotine dependence, unspecified, uncomplicated; E66.9 Obesity, unspecified
CPT/HCPCS: 72193; 80053; 81001; 83605; 83690; 85025; 96365; 96366; 96375; 96376; 99285-25; G0378; J0694; J1170; J1644; J1885; J2270; J2405; J2550; J7121; Q9967

== ENCOUNTER 2020-08-22 12:55 | Day surgery (SDC) | payer BC ==
[~2020-08-22] VITALS: Ht 175.3 cm; Wt 125.0 kg
--- NOTE | ~2020-08-22 | OR ---
[facility] [address] [place], [place] [address] Draft DATE OF OPERATION: 08/22/2020 SURGEON: Tyrone Mariee MD PREOPERATIVE DIAGNOSIS: History of acute diverticulitis on June 20, 2020, now resolved. POSTOPERATIVE DIAGNOSIS: Sigmoid and left-sided diverticulosis. No evidence of neoplasm. PROCEDURE: Total colonoscopy to cecum. ANESTHESIA: Intravenous sedation, fentanyl 150 mcg and Versed 7 mg. INDICATION: This 25-year-old man suffered acute diverticulitis, hospitalized between June 20 and June 22. The problem was diagnosed by clinical examination and CT scan. Notably, he underwent appendectomy for acute appendicitis in August of 2019. He is admitted at this time to undergo colonoscopy to ascertain there are no other abnormalities accounting for his episode of presumed diverticulitis. He is clinically well from his previous problem. The risks of bleeding, infection, and perforation related to colonoscopy was reviewed with him. He understands and wished to proceed. FINDINGS: The prep was good. Complete colonoscopy was undertaken to the cecum without question. He had diverticulosis of the sigmoid and left colon but no sign of polyps, colitis, cancer, or other abnormality. DESCRIPTION OF PROCEDURE: The patient was brought to the endoscopy suite and placed in lateral decubitus position, given intravenous sedation to the point of slurred speech and nystagmus. Digital rectal examination was normal. An Olympus video colonoscope was passed in the rectum and manipulated throughout the colon ultimately intubating the cecum. The ileocecal valve and appendiceal orifice were normal. The scope was withdrawn from that point and examination throughout showed no sign of abnormality, other than diverticular changes of the left colon and sigmoid. There was no sign of stricture, neoplasm, colitis, or other abnormality. Retroflexed PATIENT NAME: LIOR JOHNSON OPERATIVE REPORT DATE OF : [birth year] REPORT #: [id number] PHYSICIAN: TYRONE MARIEE MD PCP: NO PRIMARY CARE PHYSICIAN REPORT IS CONFIDENTIAL AND NOT TO BE RELEASED WITHOUT AUTHORIZATION [facility] [address] [place], [place] [address] Draft view was normal as well. The scope was removed and the patient was taken to the recovery room in good condition. CONCLUDING DIAGNOSIS: Diverticulosis as expected. PLAN: Recommend high-fiber diet. Repeat colonoscopy be recommended at age 48 otherwise. If he should begin to have symptoms of diverticulitis again, he will let me know. He has no primary care provider, it is noted. MD ANNETTE Cast/ALBA /[id number] Copies: ~ PATIENT NAME: LIOR JOHNSON OPERATIVE REPORT DATE OF : [birth year] REPORT #: [id number] PHYSICIAN: TYRONE MARIEE MD PCP: NO PRIMARY CARE PHYSICIAN REPORT IS CONFIDENTIAL AND NOT TO BE RELEASED WITHOUT AUTHORIZATION
[~2020-08-22 12:55] MED LIST changes: +ACETAMINOPHEN500 MG PO; +CIPROFLOXACIN500 MG PO; +METRONIDAZOLE500 MG PO; +OXYCODONE-ACET1 EAC1 PO
--- NOTE | 2020-08-22 15:03 | NUR ---
08/22/20 1503 Coby Betancourt 1412 PT ARRIVED IN PACU SLEEPY WITH NO C/O'S. ABD SOFT. 1430 DR AT BEDSIDE. ALL QUESTIONS ANSWERED. 1445 SITTING AT BEDSIDE SIPPING ON JUICE. DC INSTRUCTIONS GIVEN. 1455 LEFT VIA W/C. INSTRUCTIONS GIVEN TO GIRLFRIEND AT CAR.
== END 2020-08-22 14:55 | disposition home or self-care (01) ==
LOC: OPS 12:55 → DS 13:01 → OPS 14:00 → DS 14:00 → OPS 14:55
PROVIDERS: ATTEND Surgery
PROC: 0DJD8ZZ Inspection of Lower Intestinal Tract, Via Natural or Artificial Opening Endoscopic (ICD-10-PCS; principal; 2020-08-22 14:00)
DX: K57.30 Diverticulosis of large intestine without perforation or abscess without bleeding (principal); Z86.16 Personal history of COVID-19
CPT/HCPCS: 99153; G0500; J2250; J3010; J7121